=== PATIENT | male | born 2000 | race Caucasian/White ===

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

== ENCOUNTER 2023-07-11 09:31 | Emergency (ER) | payer BC, OTHER ==
[~2023-07-11] VITALS: Ht 175.3 cm; Wt 124.0 kg
[2023-07-11] MEDS ORDERED: IBUPROFEN 800 MG TAB PO ONE (10:35)
[2023-07-11 10:48] VITALS: BP 178/82; TEMP 98.9; O2SAT 96
== END 2023-07-11 10:59 | disposition home or self-care (01) ==
LOC: M ED 09:31
DX: S69.91XA Unspecified injury of right wrist, hand and finger(s), initial encounter (principal); W22.09XA Striking against other stationary object, initial encounter; Y92.009 Unspecified place in unspecified non-institutional (private) residence as the place of occurrence of the external cause

== ENCOUNTER → 2023-07-23 | Outpatient (CLI) | payer BC | LOC: M SOG 08:17 | PROVIDERS: ATTEND Physician Assistant | DX: S69.91XD Unspecified injury of right wrist, hand and finger(s), subsequent encounter (principal) ==

== ENCOUNTER → 2023-12-22 | Outpatient (CLI) | payer BC | LOC: M RAD 16:45 | PROVIDERS: ATTEND Student in an Organized Health Care Education/Training Program | DX: M25.531 Pain in right wrist (principal) ==

== ENCOUNTER 2025-05-31 15:38 | Emergency (ER) | payer OTHER, BC ==
[~2025-05-31] VITALS: Ht 172.7 cm; Wt 85.2 kg
[2025-05-31 18:42] VITALS: TEMP 99
[2025-05-31 19:46] VITALS: BP 132/85; O2SAT 99
== END 2025-05-31 19:48 | disposition home or self-care (01) ==
LOC: M ED 15:38
DX: S46.012A Strain of muscle(s) and tendon(s) of the rotator cuff of left shoulder, initial encounter (principal); Y92.9 Unspecified place or not applicable; Y93.9 Activity, unspecified; Y99.9 Unspecified external cause status; Z79.51 Long term (current) use of inhaled steroids; Z79.899 Other long term (current) drug therapy